=== PATIENT | male | born 1955 | race Caucasian/White ===

== ENCOUNTER 2017-03-07 12:32 | Emergency (ER) | payer OTHER ==
[~2017-03-07] VITALS: Ht 162.6 cm; Wt 89.0 kg
[~2017-03-07 12:32] MED LIST: IBUP-1542 PO; NAPR-260 PO
[2017-03-07 12:34] VITALS: Ht 162.6 cm; Wt 89.0 kg
[2017-03-07] MEDS ORDERED: ALBUTEROL 0.5% (NEB) 2.5 MG/0.5 ML AMP INH STA (14:26)
[2017-03-07] MEDS ORDERED: predniSONE 20 MG TAB PO STA (14:26)
[2017-03-07] MEDS ORDERED: IPRATROPIUM (NEB) 0.5 MG/2.5 ML AMP INH STA (14:26)
--- NOTE | 2017-03-07 15:02 | RADRPT ---
PROCEDURE: XR Chest. CLINICAL INDICATION: Asthma exacerbation TECHNIQUE: Single frontal view of the chest was obtained. COMPARISON: None. FINDINGS: The heart and mediastinum are within normal limits. The lungs are clear. There is no significant pleural effusion or pneumothorax. IMPRESSION: No acute disease. RPTAT: EE Physician Francine Date Time Electronically viewed and signed by Len Ramirez Physician on 03/07/2017 15:02 /
--- NOTE | 2017-03-07 15:08 | ERD ---
ER Documentation Chief Complaint Date/Time DATE: 03/07/17 TIME: 15:08 Chief Complaint cough x 1 mos HPI 61-year-old male who presents the emergency department today complaining of cough for the past month. Patient states he has tried DayQuil and NyQuil with no improvement in symptoms. States he has pain on the right side of his ribs from coughing. States that he is a former smoker and quit 40 years ago. States he has some shortness of breath with deep inspiration however denies any fevers or chills. Denies any chest pain ROS All systems reviewed and are negative except as per history of present illness. Medications Home Meds Active Scripts Albuterol Sulfate* (Ventolin HFA*) 18 Gm Hfa.aer.ad, 2 PUFF INHALATION Q4H, #1 INHALER Prov:KALIN SURESH PA-C 03/07/17 Prednisone* (Prednisone*) 20 Mg Tab, 40 MG PO DAILY for 4 Days, TAB Prov:KALIN SURESH PA-C 03/07/17 Azithromycin* (Zithromax*) 250 Mg Tablet, 250 MG PO .ZPACK DIRECTED, #6 TAB TAKE 500 MG (2 TABS) THE FIRST DAY THEN 250 MG (1 TAB) DAYS 2-5 Prov:KALIN SURESH PA-C 03/07/17 Ibuprofen* (Motrin*) 600 Mg Tab, 600 MG PO Q8, #30 TAB 0 Refills Prov:SILVA SPENCER PA-C 01/30/16 Naproxen* (Naprosyn*) 500 Mg Tablet, 500 MG PO BID Y for PAIN AND/OR INFLAMMATION, #14 TAB Prov:ERIC FELDMAN DO 12/24/15 Allergies Allergies: Coded Allergies: No Known Allergies (Verified Allergy, 04/19/11) PMhx/Soc Medical and Surgical Hx: pt denies Medical Hx, pt denies Surgical Hx History of Surgery: No Anesthesia Reaction: No Hx Neurological Disorder: No Hx Respiratory Disorders: No Hx Cardiac Disorders: No Hx Psychiatric Problems: No Hx Miscellaneous Medical Probl: No Hx Alcohol Use: Yes Hx Substance Use: No Hx Tobacco Use: No Smoking Status: Never smoker Physical Exam Vitals Vital Signs Date Time Temp Pulse Resp B/P Pulse Ox O2 Delivery O2 Flow Rate FiO2 03/07/17 14:39 78 18 96 21 5/30/17 12:34 98.2 85 16 162/93 99 Physical Exam Const: Pleasant, no acute distress Head: Atraumatic Eyes: Normal Conjunctiva ENT: Normal External Ears, Nose and Mouth. Neck: Full range of motion..~ No meningismus. Resp: Coarse breath sounds and mild wheezing bilaterally in all lung baez Cardio: Regular rate and rhythm, no murmurs Skin: No petechiae or rashes Neur: Awake and alert Psych: Normal Mood and Affect Results 24 hrs Current Medications Medications (Trade) Dose Ordered Sig/Raza Route PRN Reason Start Time Stop Time Status Last Admin Dose Admin Albuterol (Proventil 0.5% (Neb)) 10 mg ONCE STAT INH 03/07/17 14:26 03/07/17 14:28 DC 03/07/17 14:36 Ipratropium [place] (Atrovent 0.02% (Neb)) 1 mg ONCE STAT INH 03/07/17 14:26 03/07/17 14:28 DC 03/07/17 14:33 Prednisone (Prednisone) 60 mg ONCE STAT PO 03/07/17 14:26 03/07/17 14:28 DC 03/07/17 14:36 DIAGNOSTIC IMAGING REPORT Patient: JACQUELINE RAHMAN : 1955 Age: 61 Sex: M MR #: [id number] DOS: 03/07/17 1426 Ordering MD: KALIN SURESH PA-C Location: [facility] Room/Bed: PROCEDURE: XR Chest. CLINICAL INDICATION: Asthma exacerbation TECHNIQUE: Single frontal view of the chest was obtained. COMPARISON: None. FINDINGS: The heart and mediastinum are within normal limits. The lungs are clear. There is no significant pleural effusion or pneumothorax. IMPRESSION: No acute disease. RPTAT: EE Physician Francine Date Time Electronically viewed and signed by Len Ramirez Physician on 03/07/2017 15:02 RA/ CC: KALIN SURESH PA-C Procedures/MDM This a 61-year-old male who presents the emergency department today complaining of cough for the past month. On physical exam patient has coarse breath sounds and some mild faint wheezing bilaterally in all lung baez. Given patient's age and history of former smoker and duration of symptoms did obtain a chest x- ray chest x-ray shows no acute disease. Low suspicion for pneumonia, PE, abscess, pleural effusion. Patient is afebrile and otherwise well-appearing. He is not tachycardic and his oxygen saturation 99%. He has no chest pain. Do not feel he requires an EKG. Patient did have coarse breath sounds in wheezing bilaterally in all lung baez and therefore did give him a 1 hour continuous breathing treatment as well as prednisone here in the emergency department. Patient reported feeling symptoms improve. Patient symptoms at this time is consistent with possible bronchitis. Patient was given a prescription for Ventolin, azithromycin and short course of prednisone for home At this time the patient is stable for discharge and outpatient management. Patient should follow up with their PCP in the next 1-2 days. They may return to the emergency department sooner for any persistent or worsening of symptoms. Patient understood and agreed with the plan. Departure Diagnosis: Primary Impression: Cough Condition: Fair KALIN SURESH PA-C March 07, 2017 15:08
[2017-03-07] MEDS ORDERED: AZIT250T94 PO (15:22)
[2017-03-07] MEDS ORDERED: PRED20TA PO (15:23)
[2017-03-07] MEDS ORDERED: ALBU18HF INHALATION (15:23)
== END 2017-03-07 16:17 | disposition home or self-care (01) ==
LOC: FTE 12:32
DX: R05 Cough (principal)
CPT/HCPCS: 71010; 94644; J7512; Z7502; Z7610

== ENCOUNTER 2017-08-04 16:40 | Emergency (ER) | payer OTHER ==
[~2017-08-04] VITALS: Wt 94.0 kg
[~2017-08-04 16:40] MED LIST changes: +ALBU18HF INHALATION; +AZIT250T94 PO; +PRED20TA PO
--- NOTE | 2017-08-04 18:52 | RADRPT ---
PROCEDURE: XR Hand. CLINICAL INDICATION: Right hand pain TECHNIQUE: 3 views of the right hand were obtained. COMPARISON: No prior studies are available for comparison. FINDINGS: There is no acute fracture. Alignment is normal. Joint spaces are preserved. Soft tissues are grossly unremarkable. IMPRESSION: 1. No radiographic evidence of acute osseous abnormality of the right hand. RPTAT: HSRK .Nadeem Menendez MD, MD Date Time Electronically viewed and signed by .Nadeem Menendez MD, on 08/04/2017 18:51 .K/
--- NOTE | 2017-08-04 18:53 | RADRPT ---
PROCEDURE: XR Wrist. CLINICAL INDICATION: Right wrist pain TECHNIQUE: 4 views of the right wrist were performed. COMPARISON: No prior studies are available for comparison. FINDINGS: There is no acute fracture or dislocation. Alignment is normal. Joint spaces are preserved. Visualized soft tissues are grossly unremarkable. IMPRESSION: 1. No radiographic evidence of acute osseous abnormality of the right wrist. RPTAT: HSRK .Nadeem Menendez MD, MD Date Time Electronically viewed and signed by .Nadeem Menendez MD, MD on 08/04/2017 18:53 .K/
[2017-08-04] MEDS ORDERED: NAPR-260 PO (19:07)
--- NOTE | 2017-08-04 21:19 | ERD ---
ER Documentation Chief Complaint Chief Complaint r. wrist and hand pain s/p trauma HPI 62-year-old male complaining of right wrist pain right hand pain. Patient states that he hyperextended hand 3 days ago. Is right-hand dominant. Pain is worse with movement of right upper extremity. Has not taken medications for pain. Denies any numbness or tingling. ROS All systems reviewed and are negative except as per history of present illness. Medications Home Meds Active Scripts Naproxen* (Naprosyn*) 500 Mg Tablet, 500 MG PO BID Y for PAIN AND/OR INFLAMMATION, #30 TAB Prov:BERNARDO MARTE PA-C 08/04/17 Albuterol Sulfate* (Ventolin HFA*) 18 Gm Hfa.aer.ad, 2 PUFF INHALATION Q4H, #1 INHALER Prov:KALIN SURESH PA-C 03/07/17 Prednisone* (Prednisone*) 20 Mg Tab, 40 MG PO DAILY for 4 Days, TAB Prov:KALIN SURESH PA-C 03/07/17 Azithromycin* (Zithromax*) 250 Mg Tablet, 250 MG PO .ZPACK DIRECTED, #6 TAB TAKE 500 MG (2 TABS) THE FIRST DAY THEN 250 MG (1 TAB) DAYS 2-5 Prov:KALIN SURESH PA-C 03/07/17 Ibuprofen* (Motrin*) 600 Mg Tab, 600 MG PO Q8, #30 TAB 0 Refills Prov:SILVA SPENCER PA-C 01/30/16 Naproxen* (Naprosyn*) 500 Mg Tablet, 500 MG PO BID Y for PAIN AND/OR INFLAMMATION, #14 TAB Prov:ERIC FELDMAN DO 12/24/15 Allergies Allergies: Coded Allergies: No Known Allergies (Verified Allergy, 04/19/11) PMhx/Soc History of Surgery: No Anesthesia Reaction: No Hx Neurological Disorder: No Hx Respiratory Disorders: No Hx Cardiac Disorders: No Hx Psychiatric Problems: No Hx Miscellaneous Medical Probl: No Hx Alcohol Use: Yes Hx Substance Use: No Hx Tobacco Use: No Smoking Status: Former smoker Physical Exam Vitals Vital Signs Date Time Temp Pulse Resp B/P Pulse Ox O2 Delivery O2 Flow Rate FiO2 08/04/17 16:56 99.2 103 20 149/84 97 Physical Exam GENERAL: The patient is well-appearing, well-nourished, in no acute distress CHEST: Clear to auscultation bilaterally. There are no rales, wheezes or rhonchi. HEART: Regular rate and rhythm. No murmurs, clicks, rubs or gallops. No S3 or S4. EXTREMITIES: Tender to palpation over right wrist and right dorsal hand. No obvious deformity. No swelling. Normal ulnar, median and radian nerve innervation. pulses intact. NEUROLOGIC Motor strength in all 4 extremities with 5 out of 5 strength. Sensation grossly intact. SKIN: There is no apparent rash or petechiae. The skin is warm and dry. Procedures/MDM DIAGNOSTIC IMAGING REPORT Patient: JACQUELINE RAHMAN : 1955 Age: 62 Sex: M MR #: [id number] DOS: 08/04/171751 Ordering MD: SHIRA MARTE PA-C Location: [facility] Room/Bed: PROCEDURE: XR Hand. CLINICAL INDICATION: Right hand pain TECHNIQUE: 3 views of the right hand were obtained. COMPARISON: No prior studies are available for comparison. FINDINGS: There is no acute fracture. Alignment is normal. Joint spaces are preserved. Soft tissues are grossly unremarkable. IMPRESSION: 1. No radiographic evidence of acute osseous abnormality of the right hand. DIAGNOSTIC IMAGING REPORT Patient: JACQUELINE RAHMAN : 1955 Age: 62 Sex: M MR #: [id number] DOS: 08/04/171751 Ordering MD: SHIRA MARTE PA-C Location: [facility] Room/Bed: PROCEDURE: XR Wrist. CLINICAL INDICATION: Right wrist pain TECHNIQUE: 4 views of the right wrist were performed. COMPARISON: No prior studies are available for comparison. FINDINGS: There is no acute fracture or dislocation. Alignment is normal. Joint spaces are preserved. Visualized soft tissues are grossly unremarkable. IMPRESSION: 1. No radiographic evidence of acute osseous abnormality of the right wrist. ER Course: Velcro splint applied to right upper extremity. MDM: I have low suspicion for acute fracture dislocation. I have low suspicion for compartment syndrome. I have low suspicion for neurovascular deficit. Patient likely has musculoskeletal strain. Patient will be given splint and recommended to take medication for pain. Patient is recommended to rest extremity. All questions answered at discharge. Departure Diagnosis: Primary Impression: Wrist strain Condition: Stable Patient Instructions: Wrist Sprain Additional Instructions: FOLLOW UP WITH YOUR PRIMARY CARE PHYSICIAN TOMORROW.Return to this facility if you are not improving as expected. BERNARDO MARTE PA-C Aug 04, 2017 21:19
== END 2017-08-04 19:43 | disposition home or self-care (01) ==
LOC: FTE 16:40
DX: S63.501A Unspecified sprain of right wrist, initial encounter (principal); X50.9XXA Other and unspecified overexertion or strenuous movements or postures, initial encounter; Y92.9 Unspecified place or not applicable; Z87.891 Personal history of nicotine dependence
CPT/HCPCS: 73110; 73130; Z7502

== ENCOUNTER 2017-08-12 14:15 | Emergency (ER) | payer OTHER ==
[~2017-08-12] VITALS: Ht 167.6 cm; Wt 96.9 kg
[2017-08-12 14:17] VITALS: Ht 167.6 cm; Wt 96.9 kg
[2017-08-12] MEDS ORDERED: HYDR-902 PO (14:40)
--- NOTE | 2017-08-12 14:42 | ERD ---
ER Documentation Chief Complaint Chief Complaint Patient here for a recheck right wrist pain HPI This is a 62-year-old male who is seen here last week for a right wrist sprain. He was given naproxen for pain however he is here because he wants a different medication for pain control because the naproxen gives him GI upset and gives him a rash. He says he is following up with his wrist sprain next week. Is not having any worsening of his pain is wearing his Velcro wrist guard has no swelling no numbness or weakness in his hand ROS All systems reviewed and are negative except as per history of present illness. Medications Home Meds Active Scripts Hydrocodone/Acetaminophen (Mitchells 10-325 Tablet) 1 Each Tablet, 1 TAB PO Q6H Y for PAIN, #20 TAB Prov:LIZBETH WOO DO 08/12/17 Naproxen* (Naprosyn*) 500 Mg Tablet, 500 MG PO BID Y for PAIN AND/OR INFLAMMATION, #30 TAB Prov:BERNARDO MARTE PA-C 08/04/17 Albuterol Sulfate* (Ventolin HFA*) 18 Gm Hfa.aer.ad, 2 PUFF INHALATION Q4H, #1 INHALER Prov:KALIN SURESH PA-C 03/07/17 Prednisone* (Prednisone*) 20 Mg Tab, 40 MG PO DAILY for 4 Days, TAB Prov:KALIN SURESH PA-C 03/07/17 Azithromycin* (Zithromax*) 250 Mg Tablet, 250 MG PO .ZPACK DIRECTED, #6 TAB TAKE 500 MG (2 TABS) THE FIRST DAY THEN 250 MG (1 TAB) DAYS 2-5 Prov:KALIN SURESH PA-C 03/07/17 Ibuprofen* (Motrin*) 600 Mg Tab, 600 MG PO Q8, #30 TAB 0 Refills Prov:SILVA SPENCER PA-C 01/30/16 Naproxen* (Naprosyn*) 500 Mg Tablet, 500 MG PO BID Y for PAIN AND/OR INFLAMMATION, #14 TAB Prov:ERIC FELDMAN DO 12/24/15 Allergies Allergies: Coded Allergies: No Known Allergies (Verified Allergy, 04/19/11) PMhx/Soc History of Surgery: No Anesthesia Reaction: No Hx Neurological Disorder: No Hx Respiratory Disorders: No Hx Cardiac Disorders: No Hx Psychiatric Problems: No Hx Miscellaneous Medical Probl: No Hx Alcohol Use: Yes Hx Substance Use: No Hx Tobacco Use: No FmHx Family History: No coronary disease Physical Exam Vitals Vital Signs Date Time Temp Pulse Resp B/P Pulse Ox O2 Delivery O2 Flow Rate FiO2 08/12/17 14:17 98.9 96 20 165/96 98 Physical Exam Const: Well-developed, well-nourished Head: Atraumatic, normocephalic Eyes: Normal Conjunctiva, PERRLA, EOMI, normal sclera, no nystagmus ENT: Normal External Ears, Nose and Mouth, moist mucus membranes. Neck: Full range of motion. No meningismus, no lymphadenopathy. Resp: Clear to auscultation bilaterally, no wheezing, rhonchi, rales Cardio: Regular rate and rhythm, no murmurs, S1 S2 present Abd: Soft, non tender x 4, non distended. Normal bowel sounds, no guarding or rebound, no pulsitile abdominal masses or bruits Skin: No petechiae or rashes, no ecchymosis , no maculopapular rash Back: No midline or flank tenderness Ext: No cyanosis, or edema, FROM x 4, normal inspection, neurovascularly intact x 4, right wrist is in a Velcro splint there is some tenderness at the proximal dorsal hand but no swelling Neur: Awake and alert, STR 5/5 x 4, sensation intact x 4, no focal findings, cerebellum intact Psych: Normal Mood and Affect Procedures/MDM He is given a prescription for Mitchells Departure Diagnosis: Primary Impression: Follow-up examination for injury Additional Impression: Wrist strain Encounter type: subsequent encounter Laterality: right Qualified Code: S66.911D - Strain of right wrist, subsequent encounter Condition: Stable Patient Instructions: Wrist Sprain Referrals: RENATO BOLAND MD (PCP) LIZBETH WOO DO Aug 12, 2017 14:42
== END 2017-08-12 15:16 | disposition home or self-care (01) ==
LOC: FTE 14:15
DX: S66.911D Strain of unspecified muscle, fascia and tendon at wrist and hand level, right hand, subsequent encounter (principal); X58.XXXA Exposure to other specified factors, initial encounter
CPT/HCPCS: 99283

== ENCOUNTER 2017-08-23 12:46 | Emergency (ER) | payer OTHER ==
[~2017-08-23] VITALS: Ht 175.3 cm; Wt 95.9 kg
[~2017-08-23 12:46] MED LIST changes: +HYDR-902 PO
[2017-08-23 12:47] VITALS: Ht 175.3 cm; Wt 95.9 kg
[2017-08-23] MEDS ORDERED: HYDR-906 PO (14:42)
[2017-08-23] MEDS ORDERED: IBUP-1542 PO (14:43)
--- NOTE | 2017-08-23 14:53 | ERD ---
ER Documentation Chief Complaint Chief Complaint MEDICATION REFILL, RECHECK WRIST HPI This is a 62-year-old male who presents the emergency department today complaining of right wrist pain. Patient states he had been seen here in the past for this but this morning he slipped and fell and caught himself on his wrist. States he did see his primary care doctor yesterday and has referral to pain management on September 12. States he would like medication for the pain. Denies any fevers or chills. ROS All systems reviewed and are negative except as per history of present illness. Medications Home Meds Active Scripts Ibuprofen* (Motrin*) 600 Mg Tab, 600 MG PO Q6, #30 TAB Prov:KALIN SURESH PA-C 08/23/17 Hydrocodone/Acetaminophen (Retsof 5-325 Tablet) 1 Each Tablet, 1 TAB PO Q6H Y for PAIN, #10 TAB Prov:KALIN SURESH PA-C 08/23/17 Hydrocodone/Acetaminophen (Retsof 10-325 Tablet) 1 Each Tablet, 1 TAB PO Q6H Y for PAIN, #20 TAB Prov:LIZBETH WOO DO 08/12/17 Naproxen* (Naprosyn*) 500 Mg Tablet, 500 MG PO BID Y for PAIN AND/OR INFLAMMATION, #30 TAB Prov:BERNARDO MARTE PA-C 08/04/17 Albuterol Sulfate* (Ventolin HFA*) 18 Gm Hfa.aer.ad, 2 PUFF INHALATION Q4H, #1 INHALER Prov:KALIN SURESH PA-C 03/07/17 Prednisone* (Prednisone*) 20 Mg Tab, 40 MG PO DAILY for 4 Days, TAB Prov:KALIN SURESH PA-C 03/07/17 Azithromycin* (Zithromax*) 250 Mg Tablet, 250 MG PO .SHANNAN DIRECTED, #6 TAB TAKE 500 MG (2 TABS) THE FIRST DAY THEN 250 MG (1 TAB) DAYS 2-5 Prov:KALIN SURESH PA-C 03/07/17 Ibuprofen* (Motrin*) 600 Mg Tab, 600 MG PO Q8, #30 TAB 0 Refills Prov:SILVA SPENCER PA-C 01/30/16 Naproxen* (Naprosyn*) 500 Mg Tablet, 500 MG PO BID Y for PAIN AND/OR INFLAMMATION, #14 TAB Prov:ERIC FELDMAN DO 12/24/15 Allergies Allergies: Coded Allergies: No Known Allergies (Verified Allergy, 04/19/11) PMhx/Soc Medical and Surgical Hx: pt denies Medical Hx, pt denies Surgical Hx History of Surgery: No Anesthesia Reaction: No Hx Neurological Disorder: No Hx Respiratory Disorders: No Hx Cardiac Disorders: No Hx Psychiatric Problems: No Hx Miscellaneous Medical Probl: No Hx Alcohol Use: No Hx Substance Use: No Hx Tobacco Use: No Smoking Status: Never smoker Physical Exam Vitals Vital Signs Date Time Temp Pulse Resp B/P Pulse Ox O2 Delivery O2 Flow Rate FiO2 08/23/17 12:47 99.3 108 18 155/92 98 Physical Exam Const: NAD Head: Atraumatic Eyes: Normal Conjunctiva ENT: Normal External Ears, Nose and Mouth. Neck: Full range of motion..~ No meningismus. Resp: Clear to auscultation bilaterally Cardio: Regular rate and rhythm, no murmurs Abd: Soft, non tender, non distended. Normal bowel sounds Skin: No petechiae or rashes MSK: Right hand and wrist with no obvious deformity. No effusion. No ecchymosis. Tenderness to palpation scaphoid and wrist joint. Pain with wrist extension. Pulses 2+3 distally neurovascularly intact. Neur: Awake and alert Psych: Normal Mood and Affect Results 24 hrs Current Medications Medications (Trade) Dose Ordered Sig/Raza Route PRN Reason Start Time Stop Time Status Last Admin Dose Admin Acetaminophen/ Hydrocodone Bitart (Retsof (5/325)) 1 tab ONCE ONCE PO 08/23/17 15:00 08/23/17 15:00 DC 08/23/17 14:44 Procedures/MDM This is a 62-year-old male who presents to the emergency department today complaining of right wrist pain after slipping and falling again this morning. Upon review of patient's medical records patient was seen here on August 04 and had negative wrist and hand x-rays. He returned on August 12, 2017 stating that he needed stronger pain medication was therefore given Retsof at that time. Patient had a another fall today and he did have some scaphoid tenderness however patient declined repeat images at this time. I have explained the importance of follow-up with his primary care doctor and possible referral to commissioning specialist given the patient's tenderness over his scaphoid. Patient understood. Patient already has a Velcro wrist splint. Patient is requesting pain medication today. Patient was given Retsof here in the emergency department. She was given 10 pills for home. I have explained to the patient that we will not keep refilling the Retsof. He was instructed to keep his appointment with pain management on the 12 September. I did do a CURES report and patient has only had a prescription for Retsof filled which was prescribed by our physician here on August 12 at during his visit. He does not appear to be exhibiting drug seeking behavior. At this time the patient is stable for discharge and outpatient management. Patient should follow up with their PCP in the next 1-2 days. They may return to the emergency department sooner for any persistent or worsening of symptoms. Patient understood and agreed with the plan. Departure Diagnosis: Primary Impression: Encounter for medication refill Condition: Fair Patient Instructions: Taking Medicine Safely, Pain Management Referrals: RENATO BOLAND MD (PCP) Additional Instructions: Call your primary care doctor TOMORROW for an appointment during the next 1-2 days.See the doctor sooner or return here if your condition worsens before your appointment time. Keep your appt with pain managment. Wear splint and request referral to orthopaedic specialist Take Retsof for severe pain otherwise take Naprosyn or Tylenol or Motrin KALIN SURESH PA-C Aug 23, 2017 14:53
[2017-08-23] MEDS ORDERED: HYDROCODONE/APAP (5/325) TAB PO ONE (15:00)
== END 2017-08-23 14:52 | disposition home or self-care (01) ==
LOC: FTE 12:46
DX: M25.531 Pain in right wrist (principal); Z76.0 Encounter for issue of repeat prescription
CPT/HCPCS: Z7502; Z7610; 99283

== ENCOUNTER 2018-03-03 13:57 | Emergency (ER) | END 2018-03-03 15:09 | disposition home or self-care (01) ==

== ENCOUNTER 2018-07-06 06:43 | Emergency (ER) | END 2018-07-06 08:34 | disposition home or self-care (01) ==